=== PATIENT | female | born 1930 | race Caucasian/White ===

== ENCOUNTER 2016-08-13 07:34 | Inpatient (IN) | payer BC, MEDICARE ==
[2016-08-13] MEDS ORDERED: SODIUM CHLORIDE 0.9% 1,000 ML IV STA (07:50)
--- NOTE | 2016-08-13 07:59 | ED ---
General Adult HPI - General Chief complaint: Weakness Stated complaint: weakness Time Seen by Provider: 08/13/16 07:43 Source: patient, RN notes reviewed Mode of arrival: EMS Limitations: no limitations - History of Present Illness Initial comments: Patient is a pleasant 85-year-old female presenting to the emergency Department with concerns for weakness. Patient is a very poor historian. Patient has no complaints. Patient is unclear whether or not her speech is normal. Patient denies any new weakness. Patient states she does have left leg weakness however this is chronic from her previous stroke years ago. Patient denies any pain. No headache. No recent illness. - Related Data Home Medications Medication Instructions Recorded Confirmed Cranberry Conc/C/Bacill Coag 1 tab PO DAILY 05/03/14 08/13/16 [Cranberry Tablet] Levothyroxine Sodium [Synthroid] 25 mcg PO DAILY 05/03/14 08/13/16 amLODIPine BESYLATE [Norvasc] 5 mg PO DAILY 05/03/14 08/13/16 Mirabegron [Myrbetriq] 25 mg PO HS 12/26/14 08/13/16 ALPRAZolam [Xanax] 0.25 mg PO Q8HR PRN 08/13/16 08/13/16 Acetaminophen Tab [Tylenol Tab] 500 mg PO Q6H PRN 08/13/16 08/13/16 Carbamide Peroxide [Debrox Otic] 5 drops LEFT EAR BID 08/13/16 08/13/16 Ciprofloxacin HCl [Cipro] 500 mg PO BID@0800,2000 08/13/16 08/13/16 Cyanocobalamin (Vitamin B-12) 1,000 mcg PO DAILY 08/13/16 08/13/16 [Vitamin B-12] Meloxicam [Mobic] 7.5 mg PO DAILY 08/13/16 08/13/16 Menthol [Biofreeze] 1 applic TOPICAL BID PRN 08/13/16 08/13/16 Methyl Salicylate/Menthol 1 patch TOPICAL Q8H MDD 2 PATCHES 08/13/16 08/13/16 [Salonpas Patch] Multivits-Min/Iron/FA/Lutein 1 tab PO DAILY 08/13/16 08/13/16 [Centrum Silver Women Tablet] Polyethylene Glycol 3350 [Miralax] 17 gm PO DAILY PRN 08/13/16 08/13/16 Simethicone [Gas-X] 125 mg PO DAILY PRN 08/13/16 08/13/16 busPIRone HCL 15 mg PO BID 08/13/16 08/13/16 diphenhydrAMINE [Benadryl] 50 mg PO HS 08/13/16 08/13/16 Allergies Allergy/AdvReac Type Severity Reaction Status Date / Time JJ Inhibitors Allergy Unknown Verified 08/13/16 08:24 lisinopril Allergy Unknown Verified 08/13/16 08:24 penicillin V potassium Allergy Unknown Verified 08/13/16 08:24 [From Pen-Vee K] phenytoin sodium Allergy Unknown Verified 08/13/16 08:24 [From Dilantin] phenytoin sodium extended Allergy Unknown Verified 08/13/16 08:24 [From Dilantin] Sulfa (Sulfonamide Allergy Unknown Verified 08/13/16 08:24 Antibiotics) Review of Systems ROS Statement: Those systems with pertinent positive or pertinent negative responses have been documented in the HPI. ROS Other: All systems not noted in ROS Statement are negative. Constitutional: Denies: fever Eyes: Denies: eye pain ENT: Denies: ear pain Respiratory: Denies: cough Cardiovascular: Denies: chest pain Endocrine: Denies: fatigue Gastrointestinal: Denies: abdominal pain Genitourinary: Denies: dysuria Musculoskeletal: Denies: back pain Skin: Denies: rash Neurological: Denies: weakness Past Medical History Past Medical History: CVA/TIA, Dementia, Hypertension, Memory Impairment, Thyroid Disorder Additional Past Medical History / Comment(s): cerebral aneursym, UTI History of Any Multi-Drug Resistant Organisms: None Reported Past Surgical History: Bladder Surgery, Hysterectomy Additional Past Surgical History / Comment(s): thyroidectomy, brain Past Psychological History: No Psychological Hx Reported Smoking Status: Never smoker Past Alcohol Use History: None Reported Past Drug Use History: None Reported General Exam Limitations: no limitations General appearance: alert, in no apparent distress Head exam: Present: atraumatic Eye exam: Present: normal appearance, PERRL, EOMI. Absent: nystagmus ENT exam: Present: mucous membranes dry Neck exam: Present: normal inspection. Absent: tenderness Respiratory exam: Present: normal lung sounds bilaterally Cardiovascular Exam: Present: regular rate, normal rhythm GI/Abdominal exam: Present: soft. Absent: tenderness Extremities exam: Present: normal inspection Neurological exam: Present: alert, oriented X3, other (Questionable mild left facial droop patient is easily able to overcome.) Expanded Neurological exam: Present: protecting the airway, other (Patient does have difficulty with some words) Cranial nerves: EOM's Intact: Normal, Facial Sensation: Normal Sensory exam: Upper Extremity Light Touch: Normal, Lower Extremity Light Touch: Normal Motor strength exam: RUE: 5, LUE: 5, RLE: 5, LLE: 3 (Patient states is chronic) Eye Response: (4) open spontaneously Motor Response: (6) obeys commands Verbal Response: (5) oriented Psychiatric exam: Present: normal affect, normal mood Skin exam: Present: normal color Course Vital Signs 08/13/16 08/13/16 08/13/16 07:44 08:28 09:55 Temperature 96.9 F L Pulse Rate 76 66 65 Respiratory 18 18 18 Rate Blood Pressure 209/88 159/80 162/74 O2 Sat by Pulse 100 98 97 Oximetry EKG Findings - EKG Comments: EKG Findings:: Normal sinus rhythm 68. KS 140. QRS 86. QT 454. QTC 482. Normal axis. Normal QRS. Normal ST-T. Medical Decision Making - Medical Decision Making Patient reevaluated and resting comfortably in bed. Patient does have some difficulty orienting 2 year at this time. Daughter does state that left facial weakness is new and she does appreciate this. Patient is not a TPA candidate secondary to unclear onset. Case was discussed in detail with Dr. Love, who will admit for Dr. Naylor. - Lab Data Result diagrams: 08/13/16 07:44 08/13/16 07:44 Lab Results 08/13/16 08/13/16 08/13/16 Range/Units 07:44 07:44 07:44 WBC 5.6 (3.8-10.6) k/uL RBC 3.69 L (3.80-5.40) m/uL Hgb 12.7 (11.4-16.0) gm/dL Hct 38.0 (34.0-46.0) % MCV 102.8 H (80.0-100.0) fL MCH 34.5 (25.0-35.0) pg MCHC 33.6 (31.0-37.0) g/dL RDW 12.9 (11.5-15.5) % Plt Count 229 (150-450) k/uL Neutrophils % 62 % Lymphocytes % 21 % Monocytes % 8 % Eosinophils % 6 % Basophils % 1 % Neutrophils # 3.5 (1.3-7.7) k/uL Lymphocytes # 1.2 (1.0-4.8) k/uL Monocytes # 0.5 (0-1.0) k/uL Eosinophils # 0.3 (0-0.7) k/uL Basophils # 0.1 (0-0.2) k/uL Macrocytosis Slight PT (9.0-12.0) sec INR (<1.1) APTT (22.0-30.0) sec Sodium 144 (137-145) mmol/L Potassium 4.1 (3.5-5.1) mmol/L Chloride 109 H (98-107) mmol/L Carbon Dioxide 26 (22-30) mmol/L Anion Gap 9 mmol/L BUN 28 H (7-17) mg/dL Creatinine 0.63 (0.52-1.04) mg/dL Est GFR (MDRD) Af Amer >60 (>60 ml/min/1.73 sqM) Est GFR (MDRD) Non-Af >60 (>60 ml/min/1.73 sqM) Glucose 97 (74-99) mg/dL Calcium 9.3 (8.4-10.2) mg/dL Total Bilirubin 0.7 (0.2-1.3) mg/dL AST 19 (14-36) U/L ALT 17 (9-52) U/L Alkaline Phosphatase 85 (38-126) U/L Total Creatine Kinase 25 L (30-135) U/L CK-MB (CK-2) 0.8 (0.0-2.4) ng/mL CK-MB (CK-2) Rel Index 3.2 Troponin I <0.012 (0.000-0.034) ng/mL Total Protein 6.9 (6.3-8.2) g/dL Albumin 4.0 (3.5-5.0) g/dL 08/13/16 Range/Units 07:44 WBC (3.8-10.6) k/uL RBC (3.80-5.40) m/uL Hgb (11.4-16.0) gm/dL Hct (34.0-46.0) % MCV (80.0-100.0) fL MCH (25.0-35.0) pg MCHC (31.0-37.0) g/dL RDW (11.5-15.5) % Plt Count (150-450) k/uL Neutrophils % % Lymphocytes % % Monocytes % % Eosinophils % % Basophils % % Neutrophils # (1.3-7.7) k/uL Lymphocytes # (1.0-4.8) k/uL Monocytes # (0-1.0) k/uL Eosinophils # (0-0.7) k/uL Basophils # (0-0.2) k/uL Macrocytosis PT 11.2 (9.0-12.0) sec INR 1.1 (<1.1) APTT 26.7 (22.0-30.0) sec Sodium (137-145) mmol/L Potassium (3.5-5.1) mmol/L Chloride (98-107) mmol/L Carbon Dioxide (22-30) mmol/L Anion Gap mmol/L BUN (7-17) mg/dL Creatinine (0.52-1.04) mg/dL Est GFR (MDRD) Af Amer (>60 ml/min/1.73 sqM) Est GFR (MDRD) Non-Af (>60 ml/min/1.73 sqM) Glucose (74-99) mg/dL Calcium (8.4-10.2) mg/dL Total Bilirubin (0.2-1.3) mg/dL AST (14-36) U/L ALT (9-52) U/L Alkaline Phosphatase (38-126) U/L Total Creatine Kinase (30-135) U/L CK-MB (CK-2) (0.0-2.4) ng/mL CK-MB (CK-2) Rel Index Troponin I (0.000-0.034) ng/mL Total Protein (6.3-8.2) g/dL Albumin (3.5-5.0) g/dL - Radiology Data Radiology results: image reviewed (Computed tomography scan shows postsurgical changes, atrophy. Severe chronic small vessel disease. No acute intercranial abnormality.) Disposition Clinical Impression: TIA (transient ischemic attack) Disposition: ADMITTED IP TO THIS HOSP Referrals: Camilo Naylor MD [Primary Care Provider] - 1-2 days Time of Disposition: 10:26
[2016-08-13 08:23] LABS: Basophils # (A) 0.1 k/uL (0-0.2); Basophils % (A) 1 %; CH 33.8; Eosinophils # (A) 0.3 k/uL (0-0.7); Eosinophils % (A) 6 %; HDW 2.08; HGB 12.7 gm/dL (11.4-16.0); Luc # (Auto) 0.17; Luc % (Auto) 3; Lymphocytes # (A) 1.2 k/uL (1.0-4.8); Lymphocytes % (A) 21 %; MCH 34.5 pg (25.0-35.0); MCHC 33.6 g/dL (31.0-37.0); MCV 102.8 fL (80.0-100.0); Macrocytosis Slight; Mean Platelet Volume 7.5; Monocytes # (A) 0.5 k/uL (0-1.0); Monocytes % (A) 8 %; Neutrophils # (A) 3.5 k/uL (1.3-7.7); Neutrophils % (A) 62 %; RBC 3.69 m/uL (3.80-5.40); RDW 12.9 % (11.5-15.5); WBC 5.6 k/uL (3.8-10.6); WBC (Perox) 5.38
[2016-08-13 08:32] LABS: INR 1.1 (<1.1); Partial Thromboplastin Time 26.7 sec (22.0-30.0); Prothrombin Time 11.2 sec (9.0-12.0)
[2016-08-13 08:37] LABS: ALT 17 U/L (9-52); AST 19 U/L (14-36); Alkaline Phosphatase 85 U/L (38-126); Anion Gap 9 mmol/L; Blood Urea Nitrogen 28 mg/dL (7-17); Calcium 9.3 mg/dL (8.4-10.2); Carbon Dioxide 26 mmol/L (22-30); Chloride 109 mmol/L (98-107); Glucose 97 mg/dL (74-99); Non-African American GFR(MDRD) >60 (>60 ml/min/1.73 sqM); Potassium 4.1 mmol/L (3.5-5.1); Sodium 144 mmol/L (137-145); Total Bilirubin 0.7 mg/dL (0.2-1.3); Total Protein 6.9 g/dL (6.3-8.2)
[2016-08-13 08:44] LABS: Creatine Kinase 25 U/L (30-135)
[2016-08-13] MEDS ORDERED: SODIUM CHLORIDE 0.9% 250 ML IV STA (08:44)
[2016-08-13 08:57] LABS: Creatine Kinase MB 0.8 ng/mL (0.0-2.4); Troponin I <0.012 ng/mL (0.000-0.034)
--- NOTE | 2016-08-13 09:03 | CT ---
EXAMINATION TYPE: CT brain wo con for TPA DATE OF EXAM: 08/13/2016 8:46 AM COMPARISON: 12/26/2014, 05/03/2014 HISTORY: 85-year-old female with neurologic deficits, weakness. TECHNIQUE: Examination was done in axial plane without intravenous contrast. Coronal and sagittal r econstructions performed. CT DLP: 978.20 mGycm Automated exposure control for dose reduction was used. FINDINGS: Redemonstrated postsurgical changes of craniectomy overlying the left cerebellar region. Underlying s urgical clips and encephalomalacia within the posterior left cerebellar hemisphere with appearance un changed from prior exam. There is mild generalized supratentorial volume loss with a more moderate central cerebral atrophy an d secondary mild ventriculomegaly, stable from prior. There is severe confluent white matter hypodensity in both cerebral hemispheres as seen previously. O ld lacunar infarct left caudate head. There is no evidence of acute intracranial hemorrhage, acute ischemic changes, mass, mass-effect, or extra-axial fluid collection. There is no effacement of cerebral sulci or basal subarachnoid cister ns. There is no midline shift. Toney-white matter distinction is preserved. Some post resection changes along the left mastoid air cells. There is residual mastoid air cells are well pneumatized. Paranasal sinuses are well aerated. Visualized orbits and globes are intact. Leftw inna nasal septal deviation. IMPRESSION: 1. Stable postsurgical changes of craniectomy overlying the left cerebellar hemisphere and underlying areas of encephalomalacia posterior left cerebellum. 2. Similar moderate central cerebral atrophy and secondary ex vacuo ventriculomegaly. 3. Similar severe confluent white matter hypodensities suggesting severe burden of chronic small vess el ischemic disease. 4. No acute intracranial abnormality seen.
--- NOTE | 2016-08-13 09:57 | XR ---
EXAMINATION TYPE: XR chest 2V DATE OF EXAM: 08/13/2016 9:31 AM COMPARISON: 12/26/2014 INDICATION: Altered mental status confusion TECHNIQUE: Single frontal view of the chest is obtained. FINDINGS: The heart size is normal. The pulmonary vasculature is normal. Some posterior linear atelectasis appears to be present most likely at the left base. IMPRESSION: 1. Mild posterior streak atelectasis.
[2016-08-13] MEDS ORDERED: ASPIRIN 325 MG TAB PO STA (10:29)
[2016-08-13] MEDS ORDERED: MENTHOL-ZINC OXIDE OINT 113 GM TUBE TOPICAL PRN (12:21)
[2016-08-13] MEDS ORDERED: ACETAMINOPHEN TAB 500 MG TAB PO PRN (12:21)
[2016-08-13] MEDS ORDERED: POLYETHYLENE GLYCOL 3350 17 GM POWD.PACK PO PRN (12:21)
[2016-08-13] MEDS ORDERED: ALPRAZolam 0.25 MG TAB PO PRN (12:21)
--- NOTE | 2016-08-13 13:35 | P.HPIM ---
History of Present Illness H&P Date: 08/13/16 Chief Complaint: TIA/CVA. This is an 85-year-old female one of Dr. 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, hyperlipidemia, hypothyroidism, overactive bladder, osteoarthritis, osteoporosis, patient was diagnosed recently with urinary tract infection about a week ago she was placed on ciprofloxacin twice every day for week and the patient was brought into the emergency department at [facility] today with her daughter because of symptoms suggestive of a TIA versus CVA patient stated that she had a bit of slurred speech and she felt a bit weaker in the left side, patient was seen in the ER she had a computed tomography scan of the brain that did not show any evidence of acute infarct but it did show chronic changes, 12-lead EKG did not show any evidence of acute changes, however because of her presentation patient was was placed on aspirin 325 mg orally once every day she was admitted to the hospital for evaluation, duplex of the carotids as well as echocardiogram were obtained and the patient was admitted, neurology consultation was obtained. Review of Systems Constitutional: Reports fatigue, Reports malaise, Reports weakness, Denies anorexia, Denies chronic headaches, Denies chronic pain, Denies weight gain Eyes: bilateral blurred vision, bilateral decreased vision, denies bulging eye Ears: bilateral: decreased hearing Ears, nose, mouth and throat: Denies dysphagia, Denies sore throat Cardiovascular: Denies chest pain, Denies dyspnea on exertion, Denies high blood pressure, Denies irregular heart beat, Denies paroxysmal nocturnal dyspnea , Denies phlebitis, Denies rapid heart beat, Denies shortness of breath Respiratory: Denies congestion, Denies cough with sputum, Denies home oxygen, Denies sleep apnea, Denies snoring, Denies wheezing Gastrointestinal: Denies abdominal pain, Denies bloating, Denies BRBPR, Denies heartburn, Denies hematemesis, Denies melena, Denies nausea, Denies vomiting Genitourinary: Denies dysuria, Denies urgency Menstruation: Reports post hysterectomy, Reports postmenopausal Musculoskeletal: Reports atrophy, Reports frequent falls, Reports gait dysfunction, Reports loss of height, Reports low back pain Musculoskeletal: absent: ankle pain, ankle stiffness, ankle swelling, elbow pain , elbow stiffness, elbow swelling, foot pain, foot stiffness, foot swelling, hand pain, hand stiffness, hand swelling, hip pain, hip stiffness, hip swelling , knee pain, knee stiffness, knee swelling, shoulder pain, shoulder stiffness, shoulder swelling, wrist pain, wrist stiffness, wrist swelling Integumentary: Denies pruritus, Denies rash Neurological: Denies numbness, Denies weakness Psychiatric: Denies anxiety, Denies depression Endocrine: Denies fatigue, Denies weight change Past Medical History Past Medical History: CVA/TIA, Dementia, GERD/Reflux, Hyperlipidemia, Hypertension, Memory Impairment, Musculoskeletal Disorder, Osteoarthritis (OA), Thyroid Disorder Additional Past Medical History / Comment(s): cerebral aneursym, UTI History of Any Multi-Drug Resistant Organisms: None Reported Past Surgical History: Bladder Surgery, Hysterectomy (Total abdominal gastrectomy and bilateral sopping oophorotomy.) Additional Past Surgical History / Comment(s): thyroidectomy, brain AV malformation Past Psychological History: No Psychological Hx Reported Smoking Status: Never smoker Past Alcohol Use History: None Reported Past Drug Use History: None Reported - Past Family History Mother Family Medical History: No Reported History (Mother at age of 90 from natural causes.) Father Family Medical History: No Reported History (Father at age of 80 he was a world war 1 ) Brother(s) Family Medical History: No Reported History (Patient has one brother who is obese.) Sister(s) Family Medical History: No Reported History (Patient has 4 sisters no major medical problems.) Daughter(s) Family Medical History: No Reported History (Patient has 2 daughters and one of them is a nurse.) Medications and Allergies Home Medications Medication Instructions Recorded Confirmed Type Cranberry Conc/C/Bacill Coag 1 tab PO DAILY 05/03/14 08/13/16 History [Cranberry Tablet] Levothyroxine Sodium [Synthroid] 25 mcg PO DAILY 05/03/14 08/13/16 History amLODIPine BESYLATE [Norvasc] 5 mg PO DAILY 05/03/14 08/13/16 History Mirabegron [Myrbetriq] 25 mg PO HS 12/26/14 08/13/16 History ALPRAZolam [Xanax] 0.25 mg PO Q8HR PRN 08/13/16 08/13/16 History Acetaminophen Tab [Tylenol Tab] 500 mg PO Q6H PRN 08/13/16 08/13/16 History Carbamide Peroxide [Debrox Otic] 5 drops LEFT EAR BID 08/13/16 08/13/16 History Ciprofloxacin HCl [Cipro] 500 mg PO BID@0800,2000 08/13/16 08/13/16 History Cyanocobalamin (Vitamin B-12) 1,000 mcg PO DAILY 08/13/16 08/13/16 History [Vitamin B-12] Meloxicam [Mobic] 7.5 mg PO DAILY 08/13/16 08/13/16 History Menthol [Biofreeze] 1 applic TOPICAL BID PRN 08/13/16 08/13/16 History Methyl Salicylate/Menthol 1 patch TOPICAL Q8H MDD 2 PATCHES 08/13/16 08/13/16 History [Salonpas Patch] Multivits-Min/Iron/FA/Lutein 1 tab PO DAILY 08/13/16 08/13/16 History [Centrum Silver Women Tablet] Polyethylene Glycol 3350 [Miralax] 17 gm PO DAILY PRN 08/13/16 08/13/16 History Simethicone [Gas-X] 125 mg PO DAILY PRN 08/13/16 08/13/16 History busPIRone HCL 15 mg PO BID 08/13/16 08/13/16 History diphenhydrAMINE [Benadryl] 50 mg PO HS 08/13/16 08/13/16 History Allergies Allergy/AdvReac Type Severity Reaction Status Date / Time JJ Inhibitors Allergy Unknown Verified 08/13/16 08:24 lisinopril Allergy Unknown Verified 08/13/16 08:24 penicillin V potassium Allergy Unknown Verified 08/13/16 08:24 [From Pen-Vee K] phenytoin sodium Allergy Unknown Verified 08/13/16 08:24 [From Dilantin] phenytoin sodium extended Allergy Unknown Verified 08/13/16 08:24 [From Dilantin] Sulfa (Sulfonamide Allergy Unknown Verified 08/13/16 08:24 Antibiotics) Physical Exam Vitals: Vital Signs Temp Pulse Resp BP BP Pulse Ox 08/13/16 12:43 68 18 188/84 188/84 100 08/13/16 09:55 65 18 162/74 97 08/13/16 08:28 66 18 159/80 98 08/13/16 07:44 96.9 F L 76 18 209/88 100 Intake and Output 08/12/16 08/13/16 08/13/16 22:59 06:59 14:59 Other: Weight 58.06 kg Patient Weight 08/14/16 06:59 Weight 58.06 kg - Constitutional General appearance: average body habitus, no acute distress - EENT Eyes: anicteric sclerae, EOMI, PERRLA, no ptosis, no scleral icterus, normal appearance ENT: hard of hearing, NA/AT, normal oropharynx, no thrush Ears: bilateral: normal - Neck Neck: no lymphadenopathy, normal ROM, no rigidity, no stridor, no thyromegaly Carotids: bilateral: upstroke delayed Thyroid: negative: normal size (Post total thyroidectomy due to thyroid cancer.) - Respiratory Respiratory: bilateral: diminished, negative: dullness, rales, rhonchi, wheezing , prolonged expiration - Cardiovascular Rhythm: regular Heart sounds: normal: S1, S2 Abnormal Heart Sounds: systolic murmur, no rub, no S3 Gallop, no S4 Gallop, no click - Gastrointestinal General gastrointestinal: normal bowel sounds, soft, no splenomegaly, no tenderness, no umbilical hernia, no ventral hernia - Integumentary Integumentary: normal, normal turgor - Neurologic Neurologic: CNII-XII intact - Musculoskeletal Musculoskeletal: generalized weakness, strength equal bilaterally - Psychiatric Psychiatric: A&O x's 3, appropriate affect, intact judgment & insight Results CBC & Chem 7: 08/13/16 07:44 08/13/16 07:44 Labs: Abnormal Lab Results - Last 24 Hours (Table) 08/13/16 08/13/16 08/13/16 Range/Units 07:44 07:44 07:44 RBC 3.69 L (3.80-5.40) m/uL MCV 102.8 H (80.0-100.0) fL Chloride 109 H (98-107) mmol/L BUN 28 H (7-17) mg/dL Total Creatine Kinase 25 L (30-135) U/L Thrombosis Risk Factor Assmnt - DVT/VTE Prophylaxis DVT/VTE Prophylaxis: Pharmacologic Prophylaxis ordered, Mechanical Prophylaxis ordered Assessment and Plan Plan: Assessment and plan: 1. TIA versus CVA. Admitted to telemetry unit, aspirin 325 mg orally once every day, duplex of the carotids, echocardiogram, neuro check every 2 hours for the next 24 hours, neurology consultation. 2. 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 Minimal left-sided weakness that has resolved. 3. Hypertension and hypertensive cardiovascular disease. Continue patient on amlodipine 5 mg orally once every day. 4. Hypothyroidism. Continue Synthroid 25 g orally once every day. 5. Constipation. Continue MiraLAX 17 g in 8 ounces of water daily. 6. Recent UTI. Resolved. 7. Anxiety disorder. Continue BuSpar 15 mg orally twice every day as well as Xanax as needed. 8. Osteoarthritis. Stable at this time, discontinue Mobic. 9. Overactive bladder. Continue Myrbetriq 25 mg orally at bedtime. 10. DVT prophylaxis. Heparin 5000 units subcutaneously every 12 hours. 11. GI prophylaxis. Protonix 40 mg orally once every day. 12. Patient is no code. 13. Admit to inpatient. Estimated length of stay 2 midnights.
[2016-08-13] MEDS ORDERED: ASPIRIN 300 MG SUPP RECTAL STA (13:37)
[2016-08-13] MEDS: SODIUM CHLORIDE 0.9% 1,000 ML IV SCH ×2 (13:37→23:10)
--- NOTE | 2016-08-13 14:10 | US ---
EXAMINATION TYPE: US carotid duplex BILAT DATE OF EXAM: 08/13/2016 11:11 AM COMPARISON: NONE CLINICAL HISTORY: Stenosis. EXAM MEASUREMENTS: RIGHT: Peak Systolic Velocity (PSV) cm/sec ----- Right CCA: 74.0 ----- Right ICA: 102.2 ----- Right ECA: 65.3 ICA/CCA ratio: 1.4 RIGHT: End Diastole cm/sec ----- Right CCA: 8.6 ----- Right ICA: 20.6 ----- Right ECA: 0.0 LEFT: Peak Systolic Velocity (PSV) cm/sec ----- Left CCA: 74.3 ----- Left ICA: 68.6 ----- Left ECA: 50.1 ICA/CCA ratio: 0.9 LEFT: End Diastole cm/sec ----- Left CCA: 8.4 ----- Left ICA: 0.0 ----- Left ECA: 0.0 VERTEBRALS (direction of flow): Right Vertebral: Antegrade Left Vertebral: Antegrade No significant velocity elevations, mild plaque. Intimal thickening and minimal plaque right carotid bulb. Mild intimal thickening is present on the l eft. IMPRESSION: 1. No significant flow-limiting stenosis. 2. Mild intimal thickening with some plaquing present on the right Criteria for Assigning % of Stenosis / Diameter reduction (Estimation based on the indirect measurements of the internal carotid artery velocities (ICA PSV). 1. Normal (no stenosis)=ICA PSV < 125 cm/s: ratio < 2.0: ICA EDV<40 cm/s. 2. Less than 50% stenosis=ICA PSV < 125 cm/s: ratio < 2.0: ICA EDV<40 cm/s. 3. 50 to 69% stenosis=ICA PSV of 125 to 230 cm/s: ration 2.0 ? 4.0: ICA EDV 40-100 cm/s. 4. Greater than 70% stenosis to near occlusion= ICA PSV > 230 cm/s: ratio > 4.0: ICA EDV > 100 cm/s. 5. Near occlusion= ICA PSV velocities may be low or undetectable: variable ratio and ICA EDV. 6. Total occlusion=unable to detect flow.
[2016-08-13 14:32] LABS: Appearance,Urine Clear (Clear); Bilirubin,Urine Negative (Negative); Glucose,Urine (UA) Negative (Negative); Ketones,Urine Negative (Negative); Leukocyte Esterase,Urine Negative (Negative); Nitrite,Urine Negative (Negative); Protein,Urine Negative (Negative); Specific Gravity,Urine 1.007 (1.001-1.035); UA Billing (MACRO vs. MICRO) CHEM; Urobilinogen,Urine <2.0 mg/dL (<2.0)
--- NOTE | 2016-08-13 17:12 | P.CNNES ---
History of Present Illness Consult date: 08/13/16 Requesting physician: Ivelisse Love Reason for Consult: TIA History of Present Illness: Patient is a pleasant 85-year-old female who is being seen by the neurology service today 08/13/2016 per the request of Dr. Love for TIA. Patient does have significant medical history of CVA 2, history of AV malformation with craniotomy at the [facility] 25 years ago, hypertension, hyperlipidemia, osteoarthritis. Patient was recently diagnosed with urinary tract infection about a week ago and was placed on ciprofloxacin. Patient lives in an assisted living facility. Patient was brought to [facility] emergency for symptoms suggestive of TIA. Patient 's daughter reports she had some slurred speech and was weaker on the left side. Patient had computed tomography scan of the brain which did not show any evidence for acute infarct but did show postsurgical changes of craniectomy in the left cerebellar hemisphere with underlying areas of encephalomalacia. CT also revealed chronic small vessel ischemic disease. Patient had carotid Doppler done which showed no significant flow limiting stenosis. Patient was not on aspirin in the home setting and she was started on aspirin 325 mg by mouth daily. On admission, WBCs 5.6, RBCs 3.69, hemoglobin 12.7, hematocrit 38.0. BUN was 28, creatinine 0.63, sodium 144, potassium 4.1, chloride 109, and carbon dioxide 26. Patient is afebrile with blood pressure 156/80. At the time of my evaluation, patient's resting comfortably in bed and appears to be in no acute distress. Review of Systems REVIEW OF SYSTEMS: Otherwise unremarkable and noncontributory. Past Medical History Past Medical History: CVA/TIA, Dementia, GERD/Reflux, Hyperlipidemia, Hypertension, Memory Impairment, Musculoskeletal Disorder, Osteoarthritis (OA), Thyroid Disorder Additional Past Medical History / Comment(s): cerebral aneursym, UTI History of Any Multi-Drug Resistant Organisms: None Reported Past Surgical History: Bladder Surgery, Hysterectomy (Total abdominal gastrectomy and bilateral sopping oophorotomy.) Additional Past Surgical History / Comment(s): thyroidectomy, brain AV malformation Past Psychological History: No Psychological Hx Reported Smoking Status: Never smoker Past Alcohol Use History: None Reported Past Drug Use History: None Reported - Past Family History Mother Family Medical History: No Reported History (Mother at age of 90 from natural causes.) Father Family Medical History: No Reported History (Father at age of 80 he was a world war 1 ) Brother(s) Family Medical History: No Reported History (Patient has one brother who is obese.) Sister(s) Family Medical History: No Reported History (Patient has 4 sisters no major medical problems.) Daughter(s) Family Medical History: No Reported History (Patient has 2 daughters and one of them is a nurse.) Medications and Allergies Home Medications Medication Instructions Recorded Confirmed Type Cranberry Conc/C/Bacill Coag 1 tab PO DAILY 05/03/14 08/13/16 History [Cranberry Tablet] Levothyroxine Sodium [Synthroid] 25 mcg PO DAILY 05/03/14 08/13/16 History amLODIPine BESYLATE [Norvasc] 5 mg PO DAILY 05/03/14 08/13/16 History Mirabegron [Myrbetriq] 25 mg PO HS 12/26/14 08/13/16 History ALPRAZolam [Xanax] 0.25 mg PO Q8HR PRN 08/13/16 08/13/16 History Acetaminophen Tab [Tylenol Tab] 500 mg PO Q6H PRN 08/13/16 08/13/16 History Carbamide Peroxide [Debrox Otic] 5 drops LEFT EAR BID 08/13/16 08/13/16 History Ciprofloxacin HCl [Cipro] 500 mg PO BID@0800,2000 08/13/16 08/13/16 History Cyanocobalamin (Vitamin B-12) 1,000 mcg PO DAILY 08/13/16 08/13/16 History [Vitamin B-12] Meloxicam [Mobic] 7.5 mg PO DAILY 08/13/16 08/13/16 History Menthol [Biofreeze] 1 applic TOPICAL BID PRN 08/13/16 08/13/16 History Methyl Salicylate/Menthol 1 patch TOPICAL Q8H MDD 2 PATCHES 08/13/16 08/13/16 History [Salonpas Patch] Multivits-Min/Iron/FA/Lutein 1 tab PO DAILY 08/13/16 08/13/16 History [Centrum Silver Women Tablet] Polyethylene Glycol 3350 [Miralax] 17 gm PO DAILY PRN 08/13/16 08/13/16 History Simethicone [Gas-X] 125 mg PO DAILY PRN 08/13/16 08/13/16 History busPIRone HCL 15 mg PO BID 08/13/16 08/13/16 History diphenhydrAMINE [Benadryl] 50 mg PO HS 08/13/16 08/13/16 History Allergies Allergy/AdvReac Type Severity Reaction Status Date / Time JJ Inhibitors Allergy Unknown Verified 08/13/16 08:24 lisinopril Allergy Unknown Verified 08/13/16 08:24 penicillin V potassium Allergy Unknown Verified 08/13/16 08:24 [From Pen-Vee K] phenytoin sodium Allergy Unknown Verified 08/13/16 08:24 [From Dilantin] phenytoin sodium extended Allergy Unknown Verified 08/13/16 08:24 [From Dilantin] Sulfa (Sulfonamide Allergy Unknown Verified 08/13/16 08:24 Antibiotics) Physical Examination - Vital Signs Vital Signs: Vital Signs Temp Pulse Resp BP BP Pulse Ox 08/13/16 14:49 97.7 F 72 18 156/80 97 08/13/16 13:24 66 18 175/70 96 08/13/16 12:43 68 18 188/84 188/84 100 08/13/16 09:55 65 18 162/74 97 08/13/16 08:28 66 18 159/80 98 08/13/16 07:44 96.9 F L 76 18 209/88 100 Intake and Output 08/13/16 08/13/16 08/13/16 06:59 14:59 22:59 Other: Weight 58.06 kg Patient Weight 08/14/16 06:59 Weight 58.06 kg PHYSICAL EXAM: GENERAL APPEARANCE: Patient is a well-developed, female who appears to be in no acute distress. HEENT: Normocephalic, atraumatic, no facial asymmetry is seen. Neck is supple with no masses felt. CARDIOVASCULAR: Regular rate and rhythm. ABDOMEN: Nontender, nondistended. EXTREMITIES: Show no edema or clubbing. NEUROLOGICAL EXAM: Patient is awake, alert, and oriented 2. Patient could not tell me the year. Strength is 5-/5 in all 4 extremities. Sensory exam to light touch is normal in all 4 extremities. No facial asymmetry is seen on cranial nerve testing. Speech and language are normal. No tremors or seizure- like activity is noted. Results - Laboratory Findings CBC and BMP: 08/13/16 07:44 08/13/16 07:44 Abnormal Lab Findings: Abnormal Labs 08/13/16 08/13/16 08/13/16 07:44 07:44 07:44 RBC 3.69 L MCV 102.8 H Chloride 109 H BUN 28 H Total Creatine Kinase 25 L Assessment and Plan Plan: Impression: 1. TIA 2. History of CVA 3. History of AV malformation with craniotomy 25 years ago 4. Hypertension 5. Recent urinary tract infection Recommendations: It does appear that patient suffered a transient ischemic attack with transient left-sided weakness and slurred speech. Patient's daughter reports patient is back to baseline. Agree to start patient on aspirin 325 mg by mouth daily. As you recall, CT was negative for any acute process. Carotid Dopplers were negative for any significant stenosis. I will order an EEG, fasting lipid panel, and serum homocysteine level. Continue neurological checks. I recommend PT OT consult. Patient did pass swallow testing and denies any difficulty swallowing. I will continue to follow with you. Further recommendations to follow. Thank you for allowing me to participate in the care of your patient. Feel free to call me with any questions or concerns. I performed an examination of the patient and discussed the management with the REAL ESTATE PROFESSIONAL. I have reviewed the REAL ESTATE PROFESSIONAL notes and agree with the findings and plan of care.
[2016-08-13 17:45] LABS: Cholesterol 218 mg/dL (<200); HDL Cholesterol 87 mg/dL (40-60); Triglycerides 61 mg/dL (<150)
[2016-08-13] MEDS: diphenhydrAMINE 25 MG CAP PO SCH (22:32)
[2016-08-13] MEDS: CARBAMIDE PEROXIDE 6.5% DROPS 15 ML BTL LEFT EAR SCH (22:33)
[2016-08-13] MEDS: HEPARIN SODIUM,PORCINE 5,000 UNIT/ML 1 ML VIAL SQ SCH (22:33)
[2016-08-13] MEDS: OXYBUTYNIN XL 5 MG TAB.ER.24 PO SCH (22:33)
[2016-08-13] MEDS: busPIRone HCl 5 MG TAB PO SCH (22:33)
[2016-08-14] MEDS: LEVOTHYROXINE 25 MCG TAB PO SCH (06:17)
[2016-08-14] MEDS: PANTOPRAZOLE 40 MG TABLET PO SCH (06:17)
[2016-08-14] MEDS: SODIUM CHLORIDE 0.9% 1,000 ML IV SCH ×3 (06:20→20:24)
[2016-08-14 07:03] LABS: Basophils % (A) 0 %; CH 33.3; CHCM 31.8; Eosinophils # (A) 0.3 k/uL (0-0.7); Eosinophils % (A) 5 %; HCT 38.4 % (34.0-46.0); HDW 1.98; HGB 12.5 gm/dL (11.4-16.0); Luc # (Auto) 0.11; Luc % (Auto) 2; Lymphocytes % (A) 17 %; MCH 34.1 pg (25.0-35.0); MCHC 32.5 g/dL (31.0-37.0); MCV 105.1 fL (80.0-100.0); Macrocytosis Slight; Mean Platelet Volume 7.5; Monocytes # (A) 0.4 k/uL (0-1.0); Monocytes % (A) 6 %; Neutrophils # (A) 4.1 k/uL (1.3-7.7); Neutrophils % (A) 70 %; RBC 3.66 m/uL (3.80-5.40); WBC 5.8 k/uL (3.8-10.6); WBC (Perox) 6.39
[2016-08-14] MEDS: busPIRone HCl 5 MG TAB PO SCH ×2 (08:03→20:23)
[2016-08-14] MEDS: HEPARIN SODIUM,PORCINE 5,000 UNIT/ML 1 ML VIAL SQ SCH ×2 (08:03→20:23)
[2016-08-14] MEDS: ASPIRIN 325 MG TAB PO SCH (08:03)
[2016-08-14] MEDS: amLODIPine 5 MG TAB PO SCH (08:04)
[2016-08-14] MEDS: CYANOCOBALAMIN 500 MCG TAB PO SCH (08:04)
[2016-08-14] MEDS: MULTIVITAMINS, THERA 1 EACH TAB PO SCH (08:04)
[2016-08-14] MEDS: CARBAMIDE PEROXIDE 6.5% DROPS 15 ML BTL LEFT EAR SCH ×2 (08:04→20:20)
[2016-08-14 08:20] LABS: ALT 20 U/L (9-52); AST 19 U/L (14-36); Alkaline Phosphatase 75 U/L (38-126); Anion Gap 8 mmol/L; Blood Urea Nitrogen 13 mg/dL (7-17); Carbon Dioxide 27 mmol/L (22-30); Chloride 108 mmol/L (98-107); Cholesterol 216 mg/dL (<200); Glucose 92 mg/dL (74-99); HDL Cholesterol 89 mg/dL (40-60); Non-African American GFR(MDRD) >60 (>60 ml/min/1.73 sqM); Potassium 3.8 mmol/L (3.5-5.1); Sodium 143 mmol/L (137-145); Total Bilirubin 0.8 mg/dL (0.2-1.3); Total Protein 6.5 g/dL (6.3-8.2); Triglycerides 68 mg/dL (<150)
[2016-08-14] MEDS ORDERED: NON-FORMULARY DRUG (Cranberry Conc/C/Bacill Coag [Cranberry Tablet] 1 TAB) PO SCH (09:00)
--- NOTE | 2016-08-14 10:33 | ECHOF ---
Referral Reason:Thrombus MEASUREMENTS -------- HEIGHT: 152.4 cm WEIGHT: 58.1 kg BP: 162/74 IVSd: 0.9 cm (0.6 - 1.1) LVIDd: 4.3 cm (3.9 - 5.3) LVPWd: 0.9 cm (0.6 - 1.1) IVSs: 1.2 cm LVIDs: 2.8 cm LVPWs: 1.3 cm Ao Diam: 3.4 cm (2.0 - 3.7) AV Cusp: 1.8 cm (1.5 - 2.6) LA Diam: 2.5 cm (2.7 - 3.8) MV EXCURSION: 14.577 mm (> 18.000) MV EF SLOPE: 56 mm/s (70 - 150) EPSS: 0.9 cm MV E Reilly: 0.63 m/s MV DecT: 238 ms MV A Reilyl: 0.90 m/s MV E/A Ratio: 0.71 AR PHT: 510 ms RAP: 5.00 mmHg RVSP: 7.30 mmHg FINDINGS -------- Sinus rhythm. This was a technically good study. Left ventricular wall thickness is normal. Overall left ventricular systolic function is normal with, an EF between 55 - 60 %. The right ventricle is normal in size and function. The left atrium is normal in size. The right atrium is normal in size. There is toli-nx-elgsltaq aortic regurgitation. The mitral valve leaflets are mildly thickened. Mild mitral regurgitation is present. Mild tricuspid regurgitation present. The right ventricular systolic pressure, as measured by Doppler, is 7.30mmHg. Pulmonic valve appears structurally normal. The aortic root size is normal. The pericardium is normal. CONCLUSIONS -------- 1. Sinus rhythm. 2. Mild mitral regurgitation is present. 3. Mild tricuspid regurgitation present. 4. The right ventricular systolic pressure, as measured by Doppler, is 7.30mmHg. 5. Pulmonic valve appears structurally normal. 6. The aortic root size is normal. 7. The pericardium is normal. 8. This was a technically good study. 9. Left ventricular wall thickness is normal. 10. Overall left ventricular systolic function is normal with, an EF between 55 - 60 %. 11. The right ventricle is normal in size and function. 12. The left atrium is normal in size. 13. The right atrium is normal in size. 14. There is rron-rz-rbftooae aortic regurgitation. 15. The mitral valve leaflets are mildly thickened. ECOLOGY TEACHER: Ary Marina RDCS
--- NOTE | 2016-08-14 11:35 | DS ---
DATE OF ADMISSION: 08/13/2016 DATE OF DISCHARGE: ADMITTING DIAGNOSES: 1. Transient ischemic attack. 2. History of cerebrovascular accident. 3. Hypertension. 4. Hypothyroidism. 5. Recurrent urinary tract infection. 6. Anxiety disorder. 7. Osteoarthritis. 8. Overactive bladder. DISCHARGE DIAGNOSIS: Transient ischemic attack with history of cerebrovascular accident. CONSULTATION: Neurology, who recommended continuation of aspirin 325 mg daily on discharge and continue optimizing her medical management. No further management indicated at this point. IMAGING AND PROCEDURES: 1. Doppler of the carotids which was negative. 2. Echocardiogram which was negative. 3. Head imaging which was all negative and stable from prior finding. HOSPITAL COURSE: This is 85-year-old female who presented to the hospital with symptoms similar to TIA. Patient was evaluated by Neurology for consultation, who felt that the patient would benefit from aspirin 325 daily on discharge. Patient was counseled regarding medication adherence, close followup with primary care physician. She insists on going home today and would like to follow up outpatient. Patient was discharged in stable condition after discussion at the bedside in the presence of the nursing staff.
--- NOTE | 2016-08-14 11:49 | P.PN ---
Subjective Principal diagnosis: Patient is a pleasant 85-year-old female who is being followed by the neurology service for TIA. Does have significant medical history of CVA 2, history of AV malformation with craniotomy at the [facility] approximately 25 years ago, hypertension, hyperlipidemia, and osteoarthritis. Patient lives in assisted living facility and was brought to [facility] emergency room for symptoms suggestive of TIA. Patient's daughter reports patient had slurred speech and weakness on the left side. CT of the brain did not show any evidence for acute infarct but did show postsurgical changes of craniectomy in the left cerebellar hemisphere fear with underlying encephalomalacia. Computed tomography scan of the brain also revealed chronic small vessel ischemic disease. Carotid Doppler showed no significant flow limiting stenosis. At the time of my evaluation, patient is resting comfortably in bed and appears to be in no acute distress. Objective - Vital Signs Vital signs: Vital Signs Temp 97.6 F 08/14/16 08:00 Pulse 75 08/14/16 08:00 Resp 18 08/14/16 08:00 BP 166/65 08/14/16 08:00 Pulse Ox 97 08/14/16 08:00 Intake & Output 08/13/16 08/14/16 08/14/16 18:59 06:59 18:59 Intake Total 1780 100 Balance 1780 100 Weight 58.06 kg 53.5 kg Intake: Intake, IV Titration 1600 Amount Sodium Chloride 0.9% 1, 1600 000 ml @ 100 mls/hr IV . Q10H [facility] Rx#:[id number] Oral 180 100 Other: Voiding Method Bedside Commode Bedside Commode Incontinent Incontinent # Voids 2 - Exam PHYSICAL EXAM: GENERAL APPEARANCE: Patient is a well-developed, female who appears to be in no acute distress. HEENT: Normocephalic, atraumatic, no facial asymmetry is seen. Neck is supple with no masses felt. CARDIOVASCULAR: Regular rate and rhythm. ABDOMEN: Nontender, nondistended. EXTREMITIES: Show no edema or clubbing. NEUROLOGICAL EXAM: Patient is awake, alert, and oriented 3. Speech and language are normal. Strength is 5/5 in all 4 extremities. Sensory exam to light touch is normal in all 4 extremities. no obvious facial asymmetry seen on cranial nerve testing. No tremors or seizure-like activity is noted. - Labs CBC & Chem 7: 08/14/16 06:14 08/14/16 06:14 Labs: Abnormal Lab Results - Last 24 Hours (Table) 08/13/16 08/14/16 08/14/16 Range/Units 07:44 06:14 06:14 RBC 3.66 L (3.80-5.40) m/uL MCV 105.1 H (80.0-100.0) fL Chloride 108 H (98-107) mmol/L Cholesterol 218 H 216 H (<200) mg/dL LDL Cholesterol, Calc 119 H 113 H (0-99) mg/dL HDL Cholesterol 87 H 89 H (40-60) mg/dL Microbiology - Last 24 Hours (Table) 08/13/16 13:55 Urine Culture - Preliminary Urine,Catheterized Assessment and Plan Plan: Impression: 1. TIA 2. History of CVA 3. History of AV malformation with craniotomy 25 years ago 4. Hypertension 5. Recent urinary tract infection Recommendations: It does appear that patient suffered a transient ischemic attack with transient left-sided weakness and slurred speech. Patient's daughter reports patient is back to baseline. Continue aspirin 325 mg by mouth daily. As you recall, CT was negative for any acute process. Carotid Dopplers were negative for any significant stenosis. EEG was ordered but has yet to be performed. Her fasting lipid panel showed elevated cholesterol of 216 and elevated LDL cholesterol of 113. Patient may benefit from low-dose statin drug. Serum homocystine level is pending. Continue neurological checks. I recommend PT OT consult. Patient did pass swallow testing and denies any difficulty swallowing. I will continue to follow with you. Further recommendations to follow. I performed an examination of the patient and discussed the management with the GREENS PLANTER. I have reviewed the GREENS PLANTER notes and agree with the findings and plan of care.
[2016-08-14] MEDS: OXYBUTYNIN XL 5 MG TAB.ER.24 PO SCH (20:23)
[2016-08-14] MEDS: diphenhydrAMINE 25 MG CAP PO SCH (20:23)
[2016-08-15] MEDS: LEVOTHYROXINE 25 MCG TAB PO SCH (06:34)
[2016-08-15] MEDS: PANTOPRAZOLE 40 MG TABLET PO SCH (06:34)
[2016-08-15] MEDS: ASPIRIN 325 MG TAB PO SCH (08:55)
[2016-08-15] MEDS: HEPARIN SODIUM,PORCINE 5,000 UNIT/ML 1 ML VIAL SQ SCH ×2 (08:55→20:19)
[2016-08-15] MEDS: busPIRone HCl 5 MG TAB PO SCH ×2 (08:55→20:19)
[2016-08-15] MEDS: MULTIVITAMINS, THERA 1 EACH TAB PO SCH (08:55)
[2016-08-15] MEDS: amLODIPine 5 MG TAB PO SCH (08:55)
[2016-08-15] MEDS: CARBAMIDE PEROXIDE 6.5% DROPS 15 ML BTL LEFT EAR SCH ×2 (08:55→20:20)
[2016-08-15] MEDS: CYANOCOBALAMIN 500 MCG TAB PO SCH (08:55)
--- NOTE | 2016-08-15 10:44 | PN ---
INTERVAL HISTORY: Patient continued to be hemodynamically stable. No major events reported by nursing staff. After filling out the discharge paper for the patient yesterday patient's family said that they are not willing to take her home and they would like her to go to a rehab facility given the advanced dementia and decline in her functional status. The patient had no events, still confused, at baseline mental status, following commands, and tolerating diet without difficulty. PHYSICAL EXAMINATION: VITAL SIGNS: Reviewed and stable. LUNGS: Clear to auscultation bilaterally. HEART: Normal S1, S2. ABDOMEN: Soft, no tenderness, positive bowel sounds in all 4 quadrants. EXTREMITIES: Lower extremity no edema. PSYCH: Alert and awake, and follows simple commands, not oriented to place or time. IMAGING AND LABS: Reviewed. ASSESSMENT AND PLAN: 1. Recent transient ischemic attack. Patient on aspirin 325. We will continue statin. We will continue optimizing her risk factors. 2. Advanced dementia. The patient will benefit from rehab facility. Will follow up with case management arrangement for discharge planning. 3. History of cerebrovascular accident. Will continue evidence-based medicine. 4. Anxiety, seems to be under fair control. 5. Osteoarthritis, pain is controlled. 6. Discharge planning in the morning to a rehab facility per case management arrangement.
[2016-08-15] MEDS: SODIUM CHLORIDE 0.9% 1,000 ML IV SCH (18:41)
[2016-08-15] MEDS: OXYBUTYNIN XL 5 MG TAB.ER.24 PO SCH (20:19)
[2016-08-15] MEDS: diphenhydrAMINE 25 MG CAP PO SCH (20:24)
[2016-08-16] MEDS: LEVOTHYROXINE 25 MCG TAB PO SCH (06:12)
[2016-08-16] MEDS: SODIUM CHLORIDE 0.9% 1,000 ML IV SCH ×3 (06:12→21:00)
[2016-08-16] MEDS: CYANOCOBALAMIN 500 MCG TAB PO SCH (08:14)
[2016-08-16] MEDS: ASPIRIN 325 MG TAB PO SCH (08:14)
[2016-08-16] MEDS: PANTOPRAZOLE 40 MG TABLET PO SCH (08:14)
[2016-08-16] MEDS: CARBAMIDE PEROXIDE 6.5% DROPS 15 ML BTL LEFT EAR SCH ×2 (08:14→20:48)
[2016-08-16] MEDS: busPIRone HCl 5 MG TAB PO SCH ×2 (08:14→20:48)
[2016-08-16] MEDS: amLODIPine 5 MG TAB PO SCH (08:14)
[2016-08-16] MEDS: HEPARIN SODIUM,PORCINE 5,000 UNIT/ML 1 ML VIAL SQ SCH ×2 (08:15→20:48)
--- NOTE | 2016-08-16 12:56 | FL ---
EXAMINATION TYPE: FL barium swallow w video DATE OF EXAM: 08/16/2016 12:34 PM COMPARISON: NONE HISTORY: Nodule or mass and neck area TECHNIQUE: Fluoroscopy. FINDINGS: Fluoroscopic guidance was provided for the procedure performed in conjunction with the [facility] pathology department. Please see complete report forthcoming from the Speech Pathology departmen t. Various consistencies from thin liquid to solids were administered. No aspiration or penetration was evident. There is moderate pooling within the vallecula. Some mild pooling is within piriform sinuses during p ortions of the study. No is made of some free spill into the piriform sinuses during the exam. There is extensive propulsion of the bolus to the oropharynx. There is some mild delay with swallowin g. IMPRESSION: 1. No aspiration or penetration. 2. Some chest CT as well as pooling present during the exam. Please see above discussion.
--- NOTE | 2016-08-16 13:04 | US ---
EXAMINATION TYPE: US thyroid st tissue head/neck DATE OF EXAM: 08/16/2016 12:48 PM COMPARISON: NONE CLINICAL HISTORY: goiter. GLAND SIZE: Right Lobe: 1.8 x 1.4 x 1.3 cm Overall Parenchyma: diffusely heterogenous Left Lobe: 4.7 x 2.6 x 2.9 cm Overall Parenchyma: diffusely heterogenous Isthmus Thickness: 0.2 cm NODULES RIGHT: # of nodules measured on right: 0 LEFT: # of nodules measured on left: 0 ISTHMUS: # of nodules measured in the isthmus: 0 Bilateral neck scanned, no evidence of lymphadenopathy. Gland is diffusely heterogeneous bilaterally with no definitive nodule identified. Left Lobe of thyro id enlarged IMPRESSION: DIFFUSELY HETEROGENOUS THYROID WITHOUT DISTINCT CYSTIC OR SOLID LESION.
--- NOTE | 2016-08-16 13:47 | P.DS ---
Providers Date of admission: 08/13/16 10:29 Expected date of discharge: 08/16/16 Attending physician: Ivelisse Love Consults: 08/13/16 10:30 Consult Physician Urgent Consulting Provider: Meghna Durand Reason/Comments: tia Do you want consulting provider notified?: Yes Primary care physician: Camilo Hall [place] [facility] Course: This is an 85-year-old female one of Dr. 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, hyperlipidemia, hypothyroidism, overactive bladder, osteoarthritis, osteoporosis, patient was diagnosed recently with urinary tract infection about a week ago she was placed on ciprofloxacin twice every day for week and the patient was brought into the emergency department at [facility] today with her daughter because of symptoms suggestive of a TIA versus CVA patient stated that she had a bit of slurred speech and she felt a bit weaker in the left side, patient was seen in the ER she had a computed tomography scan of the brain that did not show any evidence of acute infarct but it did show chronic changes, 12-lead EKG did not show any evidence of acute changes, however because of her presentation patient was was placed on aspirin 325 mg orally once every day she was admitted to the hospital for evaluation, duplex of the carotids as well as echocardiogram were obtained and the patient was admitted, neurology consultation was obtained. 08/16: Patient was prepared for discharge home on the weekend but family decided that she would be better off with ECF placement. Social work is following for placement. The patient has been followed by neurology with recommendations for low-dose statin. Patient had trouble swallowing for which a consult has been added with speech therapy and patient is undergone a modified barium swallow which showed no aspiration or penetration. Patient states she only chokes on her food about one time per month. She also underwent an ultrasound of the thyroid which revealed diffusely heterogeneous thyroid without distinct cystic or solid lesion. Patient will be discharged to ECF today in stable condition. Discharge diagnoses: 1. TIA 2. 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 Minimal left-sided weakness that has resolved. 3. Hypertension and hypertensive cardiovascular disease. 4. Hypothyroidism. 5. Constipation. 6. Recent UTI. Resolved. 7. Anxiety disorder, generalized. 8. Osteoarthritis, generalized. Stable. 9. Overactive bladder. Discharge plan: ECF Impression and plan of care have been directed as dictated by the signing physician. Cecilia Yoder nurse practitioner acting as scribe for signing physician. Cc: Dr. Camilo Naylor Patient Condition at Discharge: Good Plan - Discharge Summary New Discharge Prescriptions: ALPRAZolam [Xanax] 0.25 mg PO Q8HR PRN #90 PRN Reason: Anxiety Discharge Medication List Cranberry Conc/C/Bacill Coag [Cranberry Tablet] 1 tab PO DAILY 05/03/14 [History ] Levothyroxine Sodium [Synthroid] 25 mcg PO DAILY 05/03/14 [History] amLODIPine BESYLATE [Norvasc] 5 mg PO DAILY 05/03/14 [History] Mirabegron [Myrbetriq] 25 mg PO HS 12/26/14 [History] Acetaminophen Tab [Tylenol] 500 mg PO Q6H PRN 08/13/16 [History] Carbamide Peroxide [Debrox Otic] 5 drops LEFT EAR BID 08/13/16 [History] Cyanocobalamin (Vitamin B-12) [Vitamin B-12] 1,000 mcg PO DAILY 08/13/16 [ History] Meloxicam [Mobic] 7.5 mg PO DAILY 08/13/16 [History] Menthol [Biofreeze] 1 applic TOPICAL BID PRN 08/13/16 [History] Methyl Salicylate/Menthol [Salonpas Patch] 1 patch TOPICAL Q8H MDD 2 PATCHES [History] Multivits-Min/Iron/FA/Lutein [Centrum Silver Women Tablet] 1 tab PO DAILY [History] Polyethylene Glycol 3350 [Miralax] 17 gm PO DAILY PRN 08/13/16 [History] Simethicone [Gas-X] 125 mg PO DAILY PRN 08/13/16 [History] busPIRone HCL 15 mg PO BID 08/13/16 [History] diphenhydrAMINE [Benadryl] 50 mg PO HS 08/13/16 [History] ALPRAZolam [Xanax] 0.25 mg PO Q8HR PRN #90 08/16/16 [Rx] Aspirin 325 mg PO DAILY tab 08/16/16 [Rx] Follow up Appointment(s)/Referral(s): Camilo Naylor MD [Primary Care Provider] - 1-2 days Jennifer Staples DO [Doctor of Osteopathic Medicine] - 2 Weeks (goiter) Discharge Disposition: TRANSFER TO SNF/ECF
[2016-08-16] MEDS: MULTIVITAMINS, THERA 1 EACH TAB PO SCH (14:02)
[2016-08-16] MEDS: OXYBUTYNIN XL 5 MG TAB.ER.24 PO SCH (20:50)
[2016-08-16] MEDS: diphenhydrAMINE 25 MG CAP PO SCH (20:56)
[2016-08-17] MEDS: LEVOTHYROXINE 25 MCG TAB PO SCH (06:19)
[2016-08-17] MEDS: PANTOPRAZOLE 40 MG TABLET PO SCH (08:19)
[2016-08-17] MEDS: busPIRone HCl 5 MG TAB PO SCH (08:19)
[2016-08-17] MEDS: CARBAMIDE PEROXIDE 6.5% DROPS 15 ML BTL LEFT EAR SCH (08:19)
[2016-08-17] MEDS: CYANOCOBALAMIN 500 MCG TAB PO SCH (08:19)
[2016-08-17] MEDS: amLODIPine 5 MG TAB PO SCH (08:19)
[2016-08-17] MEDS: HEPARIN SODIUM,PORCINE 5,000 UNIT/ML 1 ML VIAL SQ SCH (08:19)
[2016-08-17] MEDS: ASPIRIN 325 MG TAB PO SCH (08:19)
[2016-08-17] MEDS: SODIUM CHLORIDE 0.9% 1,000 ML IV SCH (08:20)
[2016-08-17] MEDS: MULTIVITAMINS, THERA 1 EACH TAB PO SCH (12:30)
[2016-08-17 14:38] VITALS: BP 168/77; PULSE 89; RESP 17; TEMP 98
--- NOTE | 2016-09-01 10:55 | EEG ---
DATE OF SERVICE: 08/16/2016 INDICATIONS FOR EXAMINATION: Altered mental status. AGE: 85Y DESCRIPTION OF PROCEDURE: This EEG was performed using a 21 channel digital electroencephalograph, following international 10-20 system. DESCRIPTION OF THE RECORDING: From the beginning of the tracing, with the patient's eyes closed, the background rhythm was mostly consisting of 8 Hz alpha frequency in the posterior occipital leads. No obvious asymmetry was seen. Photic stimulation was performed with a good driving response seen. No pathological waves were elicited. Occasional movement and muscle artifacts are seen. Hyperventilation was not performed. The patient does reach Stage II of sleep during the tracing and occasional sleep spindles are seen. No epileptiform discharges were seen. INTERPRETATION: This asleep and awake EEG can be considered within normal limits. There was no asymmetry seen. No epileptiform discharges were noticed. The absence of epileptiform discharges does not rule out the diagnosis of epilepsy. Therefore, clinical correlation is recommended.
== END 2016-08-17 16:40 | DRG 69 ==
LOC: EC 07:34 → 6SEL 10:29 → 5MS5E 08-15 11:09
PROVIDERS: ADMIT Internal Medicine; ATTEND Internal Medicine
DX: G45.9 Transient cerebral ischemic attack, unspecified (principal); G93.89 Other specified disorders of brain; F03.90 Unspecified dementia, unspecified severity, without behavioral disturbance, psychotic disturbance, mood disturbance, and anxiety; I11.9 Hypertensive heart disease without heart failure; N32.81 Overactive bladder; E03.9 Hypothyroidism, unspecified; M19.91 Primary osteoarthritis, unspecified site; E78.5 Hyperlipidemia, unspecified; K21.9 Gastro-esophageal reflux disease without esophagitis; F41.1 Generalized anxiety disorder; K59.00 Constipation, unspecified; M81.0 Age-related osteoporosis without current pathological fracture; Z88.8 Allergy status to other drugs, medicaments and biological substances; Z86.73 Personal history of transient ischemic attack (TIA), and cerebral infarction without residual deficits; Z88.2 Allergy status to sulfonamides; Z88.0 Allergy status to penicillin; Z87.440 Personal history of urinary (tract) infections; Z90.710 Acquired absence of both cervix and uterus; Z90.79 Acquired absence of other genital organ(s); Z90.722 Acquired absence of ovaries, bilateral; Z79.1 Long term (current) use of non-steroidal anti-inflammatories (NSAID); Z79.899 Other long term (current) drug therapy
CPT/HCPCS: 36415; 70450; 71020; 74230; 76536; 80053; 80061; 81003; 82550; 82553; 83090; 84484; 85025; 85610; 85730; 87086; 93005; 93306; 93880; 94760; 95819; 96360; 96361; 99285